=== PATIENT | male | born 1990 | race Caucasian/White ===

== ENCOUNTER → 2020-06-22 11:35 | Outpatient (CLI) | payer OTHER, SELFPAY ==
[2020-06-22 13:31] LABS: Hematocrit 42.6 % (40-54); Hemoglobin 15.2 g/dL (13.0-16.5); Mean Corp Hgb Conc 35.7 g/dL (32-36); Mean Corpuscular Hgb 32.5 pg (27.0-32.0); Mean Corpuscular Volume 91.2 fL (80-94); Mean Platelet Vol. 10.7 fl (6.2-12.0); Platelet Count 249 K/mm3 (150-450); RBC Distribution Width CV 11.8 % (11.6-14.6); RBC Distribution Width SD 39.2 fl (35.1-43.9); Red Blood Count 4.67 M/mm3 (4.6-6.2); White Blood Count 7.9 K/mm3 (4.4-11.0)
[2020-06-22 13:32] LABS: Color, Urine Straw (Yellow); Glucose, Dipstick Normal (Normal); Ketone-Dipstick Negative (Negative); Leukocyte Esterase-Dipstick Negative /ul (Negative); Nitrite-Dipstick Negative (Negative); Occult Blood-Urine Negative /ul (Negative); Protein-Dipstick Negative (Negative); Specific Gravity, Urine 1.005 (1.002-1.030); Urine Bilirubin Dipstick Negative (Negative); Urine Clarity Clear (Clear); Urine Urobilinogen Normal (Normal)
[2020-06-22 13:59] LABS: Vitamin B12 620 pg/mL (211-911)
[2020-06-22 14:05] LABS: ALB/GLOB Ratio 1.1 RATIO (0.9-2.4); AST(SGOT) 24 U/L (15-37); Alanine Aminotransfer ALT/SGPT 37 U/L (16-61); Albumin, Serum 4.1 g/dL (3.2-5.0); Alkaline Phosphatase 61 U/L (45-117); Anion Gap 1 (5-15); BUN 12 mg/dL (7-18); BUN/Creat Ratio 11.5 RATIO (10-20); Calcium,Total 8.9 mg/dL (8.5-10.1); Chloride 105 mmol/L (98-107); Cholesterol 176 mg/dL (200); Creatinine, Serum 1.04 mg/dL (0.70-1.30); EST Glomerular Filtration Rate 88 mL/min (>60); Est Glom Filt Rate - Afr Amer 107 mL/min (>60); Globulin 3.8 g/dL (2.2-4.2); Glucose 79 mg/dL (74-106); High Density Lipoprotein 56 mg/dL; Potassium 4.3 mmol/L (3.5-5.1); Protein, Total 7.9 g/dL (6.4-8.2); Sodium Level 135 mmol/L (136-145); Thyroid Stim Hormone (TSH) 0.71 uIU/mL (0.358-3.74); Triglycerides 88 mg/dL; Very Low Density Lipoprotein 18 mg/dL (5-40)
[2020-06-24 14:54] LABS: Vitamin D 1,25-Dihydroxy 45.8 pg/mL (19.9-79.3)
== END ==
PROVIDERS: PCP Internal Medicine Infectious Disease
DX: Z00.00 Encounter for general adult medical examination without abnormal findings (principal); R20.2 Paresthesia of skin
CPT/HCPCS: 36415; 80053; 80061; 81002; 82607; 82652; 84443; 85027

== ENCOUNTER → 2024-02-09 | Outpatient (CLI) | payer OTHER, SELFPAY ==
--- NOTE | 2024-02-09 08:15 | VAS_PTH ---
PATIENT: EFRAÍN LOZADA LOC: [facility]#:[id number] AGE/SX: 33/M ROOM: RE02/09/[address]: Dr. Madi Mcdaniel MD : 1990 BED: DIS: 02/09/2024 SPEC #: [id number] RECD: 02/09/24 12:06 STATUS: VIVIANE REAlda #: [id number] KELLI: 02/09/24 08:[address]: Madi Mcdaniel DEPT: SURGICAL PATHOLOGY RECD BY: Lamont Castaneda ENTERED: 02/09/24 12:06 SP TYPE: VAS OTHR DR: Sophia Singh PA-C Tissues: Vas deferens, NOS Procedures: Surgery Specimen Level II HEADER OPERATION: Bilateral partial vasectomy PRE-OP DIAGNOSIS: Sterilization TISSUE SUBMITTED: A- Right vas deferens, B- Left vas deferens MICROSCOPIC DIAGNOSIS A. Right vas deferens, segmental vasectomy: Complete cross-section of vas deferens with no pathologic change. B. Left vas deferens, segmental vasectomy: Complete cross-section of vas deferens with no pathologic change. AM: 02/12/2024 MICROSCOPIC DESCRIPTION Slides are reviewed. GROSS DESCRIPTION A - Received is one container designated Right vas deferens. The specimen consists of a tubular segment of velazquez soft tissue measuring 0.7 cm in length and 0.2 cm in diameter. The specimen is sectioned and submitted entirely in one cassette. B - Received is one container designated Left vas deferens. The specimen consists of a tubular segment of velazquez soft tissue measuring 0.9 cm in length and 0.2 cm in diameter. The specimen is sectioned and submitted entirely in one cassette. / SJ: 02/09/2024 TC:4 CPT: 59781 x2
== END | disposition home or self-care (01) ==
LOC: LABSPEC 08:57
PROVIDERS: PCP Family Medicine; Referring Provider Surgery; Visit Provider Surgery
DX: Z30.2 Encounter for sterilization (principal)
CPT/HCPCS: 88302

== ENCOUNTER → 2024-03-15 | Outpatient (CLI) | payer OTHER, SELFPAY ==
--- NOTE | 2024-03-15 | FLU_PTH ---
PATIENT: EFRAÍN LOZADA LOC: [facility]#:[id number] AGE/SX: 33/M ROOM: RE03/15/[address]: Dr. Madi Mcdaniel MD : 1990 BED: DIS: 03/15/2024 SPEC #: [id number] RECD: 03/15/24 16:43 STATUS: VIVIANE REAlda #: [id number] KELLI: 03/15/24 00:[address]: Madi Mcdaniel DEPT: CYTOLOGY RECD BY: Caleb Irving ENTERED: 03/18/24 09:25 SP TYPE: Fluid OTHR DR: Sophia Singh PA-C Tissues: Cytologic material, NOS Procedures: Special Stain Group II Surgery Specimen Level IV Cytospin Fluid HEADER OPERATION: Post vasectomy PRE-OP DIAGNOSIS: Post vasectomy status TISSUE SUBMITTED: Seminal fluid for cytology DIAGNOSIS CYTOLOGY Seminal fluid for cytology (cytospins): No spermatozoa identified. SJ.mr 03/18/2024 CYTOLOGY STUDY Slides are reviewed. CYTOLOGY GROSS Received is 1 ml of viscous white fluid labeled with the patient's name and and designated per the requisition as Seminal fluid. Submitted for cytology preparation including cell block. Mr 03/18/2024 TC:5 CPT: 84585
[2024-03-15 16:44] LABS: Cytology, Semen SEE PATHOLOGY REPORT
== END | disposition home or self-care (01) ==
LOC: LABSPEC 16:42
PROVIDERS: PCP Family Medicine; Referring Provider Surgery; Visit Provider Surgery
DX: Z30.2 Encounter for sterilization (principal)
CPT/HCPCS: 88108; 88305; 88313

== ENCOUNTER → 2024-03-22 | Outpatient (CLI) | payer OTHER, SELFPAY ==
--- NOTE | 2024-03-22 09:51 | CYSPIN_PTH ---
PATIENT: EFRAÍN LOZADA LOC: [facility] U#:[id number] AGE/SX: 33/M ROOM: RE03/22/[address]: Dr. Madi Mcdaniel MD : 1990 BED: DIS: 03/22/2024 SPEC #: [id number] RECD: 03/22/24 11:06 STATUS: VIVIANE AMARA #: [id number] KELLI: 03/22/24 09:[address]: Madi Mcdaniel DEPT: CYTOLOGY RECD BY: Nafisa Restrepo ENTERED: 03/22/24 11:07 SP TYPE: CYSPIN FL OT DR: Sophia Singh PA-C Tissues: Cytologic material, NOS Procedures: Pap Stain (control) Special Stain Group II Cytospin Fluid HEADER OPERATION: Post vasectomy PRE-OP DIAGNOSIS: Post vasectomy status TISSUE SUBMITTED: Seminal fluid for cytology DIAGNOSIS CYTOLOGY Seminal fluid for cytology (cytospins): Spermatozoa are not identified. SJ.mr 03/25/2024 CYTOLOGY STUDY Slides are reviewed. CYTOLOGY GROSS Received is 2.5 ml of cloudy opaque mucoidy fluid labeled with the patient's name and and designated per the requisition as Seminal fluid. Submitted for cytology preparation. Mr 03/22/2024 TC:5 CPT: 80876
[2024-03-22 09:52] LABS: Cytology, Semen SEE PATHOLOGY REPORT
== END | disposition home or self-care (01) ==
LOC: LABSPEC 09:50
PROVIDERS: PCP Family Medicine; Referring Provider Surgery; Visit Provider Surgery
DX: Z30.2 Encounter for sterilization (principal)
CPT/HCPCS: 88108; 88313